=== PATIENT | male | born 1975 | race African-American/Black ===

== ENCOUNTER 2016-12-21 14:32 | Emergency (ER) | payer OTHER ==
[~2016-12-21] VITALS: Ht 172.7 cm; Wt 74.8 kg
[~2016-12-21 14:32] MED LIST: ATRIPLA TABLET1 EAC1 ORAL; HYDROCHLOROTH12.5 M2 ORAL
[2016-12-21] MEDS ORDERED: NKM (14:49)
[2016-12-21] MEDS ORDERED: Metoclopramide 10mg/10ml Liq ORAL ONE (15:15)
[2016-12-21] MEDS ORDERED: Acetaminophen 500mg (ES) tab ORAL ONE (15:15)
--- NOTE | 2016-12-21 15:30 | Emergency Room Report ---
History of Present Illness General Chief Complaint: Headache Source: Patient Present Illness HPI 41 YO male presents to the ED c/o Headache and left ear pain times one week in addition to palpable lump on the scalp that is tender. Patient denies nausea, vomiting, fevers or chills,or sudden onset of headache. Patient rates his pain as 10 out of 10 in severity described as dull and throbbing. And reports decreased hearing out of the left ear. Patient denies discharge from the ear. Patient denies recent trauma or fall. Patient states he has had a palpable lump on his scalp for quite some time however more recently it has become tender to the touch. Denies imbalance, CP, Palpitations, LOC, AMS, dizziness, Changes in Vision, Sensation, paresthesias, or a sudden severe headache. Allergies: Coded Allergies: No Known Allergies (Unverified , 10/07/14) Patient History Past Medical History: see triage record Past Surgical History: none Pertinent Family History: none Immunizations: UTD Reviewed Nursing Documentation: PMH: Agreed, PSxH: Agreed Nursing Documentation-PMH Past Medical History: No Stated History Hx Cardiac Problems: No - HIV Hx Hypertension: No - CHORNIC BACK PAIN Review of Systems All Other Systems: negative except mentioned in HPI Physical Exam Vital Signs Date Time Temp Pulse Resp B/P Pulse Ox O2 Delivery O2 Flow Rate FiO2 12/21/16 14:43 98.1 82 16 154/98 99 Room Air Sp02 EP Interpretation: reviewed, normal General Appearance: no apparent distress, alert, GCS 15, non-toxic Head: normocephalic, atraumatic, other - TTP to a small well cirsumscribed mobile mass located on the occipital region of the scalp, no erythema, no fluctuance, consistent with lipoma or soft tissue cyst. Eyes: bilateral eye EOMI, bilateral eye PERRL, bilateral eye normal inspection ENT: hearing grossly normal, normal pharynx, no angioedema, normal voice, uvula midline, moist mucus membranes, other - Left TM has Serous fluid noted behing the membrane, no erythema, no d/c noted, not perforated. right TM and Canal are WNL. Neck: full range of motion, no meningismus, no bony tend, supple/symm/no masses Respiratory: chest non-tender, lungs clear, normal breath sounds, speaking full sentences Cardiovascular #1: regular rate, rhythm, no edema Gastrointestinal: normal bowel sounds, non tender, soft, no guarding, no rebound Rectal: deferred Musculoskeletal: back normal, gait/station normal, normal range of motion, non- tender, no calf tenderness Neurologic: alert, oriented x3, responsive, motor strength/tone normal, sensory intact, cerebellar normal, normal gait, speech normal, no pronator, other - negative rosen's Psychiatric: judgement/insight normal, memory normal, mood/affect normal Skin: normal color, no rash, warm/dry, well hydrated, other - TTP to a small well cirsumscribed mobile mass located on the occipital region of the scalp, no erythema, no fluctuance, consistent with lipoma or soft tissue cyst. Lymphatic: no adenopathy Medical Decision Making PA Attestation Dr. Sosa is my supervising Physician whom patient management has been discussed with. Diagnostic Impression: Primary Impression: Acute serous otitis media of left ear without rupture Additional Impressions: Head ache Qualified Codes: R51 - Headache Lipoma of scalp ER Course 41 YO male presents to the ED c/o Headache and left ear pain times one week in addition to palpable lump on the scalp that is tender. Patient denies fevers or chills denies dizziness denies sudden onset of headache. Patient rates his pain as 10 out of 10 in severity. And reports decreased hearing out of the left ear. Patient denies discharge from the ear. Patient denies recent trauma or fall. Patient states he has had a palpable lump on his scalp for quite some time however more recently it has become tender to the touch. Ddx considered but are not limited to, LAD, Lipoma, Cyst, Mass, migraine, SAH, Psedudo motor Cerebri, Mass lesion, Cluster BRUCE, Tension BRUCE, OM, OE, Vital signs: are WNL, pt. is afebrile H&PE are most consistent with lipoma vs soft tissue cyst-no evidence of infection not consistent with LAD, pt. has right serous otitis media without rupture. no focal neurological deficits noted on PE. ORDERS: - none required at this time, dx is clinical. ED INTERVENTIONS: - Reglan PO - Tylenol PO d/w pt. proper follow up and recommend evaluation by ENT specialist and if headache continues after ear symptoms resolve that neurologist follow up is recommended as well. DISCHARGE: At this time pt. is stable for d/c to home. Will provide printed patient care instructions, and any necessary prescriptions. Care plan and follow up instructions have been discussed with the patient prior to discharge. Last Vital Signs Date Time Temp Pulse Resp B/P Pulse Ox O2 Delivery O2 Flow Rate FiO2 12/21/16 14:43 98.1 82 16 154/98 99 Room Air Disposition: HOME, SELF-CARE Condition: Stable Scripts Acetaminophen* (TYLENOL EXTRA STRENGTH*) 500 Mg Tablet 500 MG ORAL Q6H, #30 TAB 0 Refills Prov: Lina Hill 12/21/16 Cetirizine Hcl* (ZYRTEC*) 10 Mg Tablet 10 MG ORAL DAILY for 30 Days, #30 TAB 0 Refills Prov: Lina Hill 12/21/16 Pseudoephedrine Hcl* (NEXAFED*) 30 Mg Tablet 30 MG ORAL Q6H, #28 TAB Prov: Lina Hill 12/21/16 Referrals: [facility],REFERRING (PCP) Patient Instructions: Lipoma, Serous Otitis Media Additional Instructions: Take medications as directed. Follow up with PCP in 3-5 days, May require ENT Specialist evaluation. if Headaches persist Neurology Evaluation is also recommended. Return sooner to ED if new symptoms occur, or current symptoms become worse. - Please note that this Emergency Department Report was dictated using [employer] equipment engineer technology software, occasionally this can lead to erroneous entry secondary to interpretation by the dictation equipment. Lina Hill Dec 21, 2016 15:30
[2016-12-21] MEDS ORDERED: NEXAFED30 MG ORAL (15:31)
[2016-12-21] MEDS ORDERED: TYLENOL EXTRA500 MG ORAL (15:31)
[2016-12-21] MEDS ORDERED: ZYRTEC10 MG ORAL (15:31)
[2016-12-21 15:38] VITALS: BP 145/89
[2016-12-21 15:53] VITALS: BP 145/89
== END 2016-12-21 15:54 | disposition home or self-care (01) ==
LOC: EMR 15:08
DX: R51 Headache (principal); H65.02 Acute serous otitis media, left ear; D17.0 Benign lipomatous neoplasm of skin and subcutaneous tissue of head, face and neck; G89.29 Other chronic pain
CPT/HCPCS: 99284

== ENCOUNTER 2019-09-16 15:08 | Emergency (ER) | payer MEDICAID, OTHER ==
[~2019-09-16] VITALS: Ht 167.6 cm; Wt 72.6 kg
[~2019-09-16 15:08] MED LIST changes: +NEXAFED30 MG ORAL; +NKM; +TYLENOL EXTRA500 MG ORAL; +ZYRTEC10 MG ORAL
--- NOTE | 2019-09-16 15:28 | NUR ---
ED Nurse Note: pt identifies as female and prefers name as "Karley" primary rn and PA-C made aware.
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
[2019-09-16 15:42] VITALS: BP 151/94
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
[2019-09-16] MEDS ORDERED: LIDODERM700 M1 TOPIC (15:51)
[2019-09-16] MEDS ORDERED: IBUPROFEN600 MG ORAL (15:51)
[2019-09-16] MEDS ORDERED: ROBAXIN-500MG ORAL (15:51)
[2019-09-16] MEDS ORDERED: Methocarbamol 750mg tab ORAL ONE (16:00)
--- NOTE | 2019-09-16 16:10 | NUR ---
ER DISCHARGE NOTE: Patient is cleared to be discharged per ERMD, pt is aox4, on room air, with stable vital signs. pt was given dc and prescription instructions, pt was able to verbalize understanding, pt id band removed. pt is able to ambulate with steady gait. pt took all belongings. Vital signs stable as documented
[2019-09-16 16:23] VITALS: BP 124/86
== END 2019-09-16 16:00 | disposition home or self-care (01) ==
LOC: EMR 16:00
DX: S16.1XXA Strain of muscle, fascia and tendon at neck level, initial encounter (principal); M25.512 Pain in left shoulder; M25.511 Pain in right shoulder; B20 Human immunodeficiency virus [HIV] disease; V43.52XA Car driver injured in collision with other type car in traffic accident, initial encounter; Y92.410 Unspecified street and highway as the place of occurrence of the external cause
CPT/HCPCS: 99282

== ENCOUNTER 2019-12-01 15:21 | Emergency (ER) | payer MEDICAID, OTHER ==
[~2019-12-01] VITALS: Ht 172.7 cm; Wt 72.6 kg
[~2019-12-01 15:21] MED LIST changes: +IBUPROFEN600 MG ORAL; +LIDODERM700 M1 TOPIC; +ROBAXIN-500MG ORAL
[2019-12-01 15:36] VITALS: BP 135/91
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
[2019-12-01] MEDS ORDERED: IBU800 MG PO (15:55)
[2019-12-01] MEDS ORDERED: ROBAXIN-500MG ORAL (15:55)
[2019-12-01] MEDS ORDERED: LIDODERM700 M1 TOPIC (15:56)
[2019-12-01 15:59] VITALS: BP 127/89
[2019-12-01] MEDS ORDERED: Methocarbamol 750mg tab ORAL ONE (16:00)
== END 2019-12-01 15:58 | disposition home or self-care (01) ==
LOC: EMR 15:35
DX: S39.012A Strain of muscle, fascia and tendon of lower back, initial encounter (principal); V43.52XA Car driver injured in collision with other type car in traffic accident, initial encounter; Y92.9 Unspecified place or not applicable; B20 Human immunodeficiency virus [HIV] disease
CPT/HCPCS: 99282

== ENCOUNTER 2020-08-01 17:15 | Emergency (ER) | payer OTHER ==
[~2020-08-01] VITALS: Ht 172.7 cm; Wt 72.6 kg
[~2020-08-01 17:15] MED LIST changes: +IBU800 MG PO
[2020-08-01 17:37] VITALS: BP 130/86
--- NOTE | 2020-08-01 17:46 | Emergency Room Report ---
History of Present Illness General Chief Complaint: Eye Problems Source: Patient Present Illness HPI 45-year-old female with no signal past medical history here complaining x2 days. Patient reports that she is been applying mascara and apply new lashes. Denies any trauma to the eye. Complains of yellow discharge from the eye in the morning. Denies any photophobia or blurred vision. Denies wearing any contact lenses or glasses. Visual acuity within normal limits. Has not taken medication for symptom relief. Denies . Allergies: Coded Allergies: No Known Allergies (Unverified , 10/07/14) COVID-19 Screening Contact w/high risk pt: No Experienced COVID-19 symptoms?: No COVID-19 Testing performed REPORT MANAGER: No Patient History Past Medical History: see triage record Past Surgical History: none Pertinent Family History: none Last Menstrual Period: transgender Now: No Immunizations: UTD Reviewed Nursing Documentation: PMH: Agreed; PSxH: Agreed Nursing Documentation-PMH Hx Cardiac Problems: No - HIV Hx Hypertension: No - CHORNIC BACK PAIN Review of Systems All Other Systems: negative except mentioned in HPI Physical Exam Vital Signs Date Time Temp Pulse Resp B/P (MAP) Pulse Ox O2 Delivery O2 Flow Rate FiO2 08/01/20 17:19 98.1 80 19 130/86 (101) 98 Room Air Sp02 EP Interpretation: reviewed, normal General Appearance: no apparent distress, alert, GCS 15, non-toxic Head: normocephalic, atraumatic Eyes: right eye other - Right upper eyelid stye noted as well as injected conjunctiva ENT: hearing grossly normal, normal pharynx, no angioedema, normal voice Neck: full range of motion, supple/symm/no masses Respiratory: chest non-tender, lungs clear, normal breath sounds, speaking full sentences Cardiovascular #1: regular rate, rhythm, no edema Gastrointestinal: normal bowel sounds, non tender, soft, non-distended, no guarding, no rebound Musculoskeletal: back normal Neurologic: alert, motor strength/tone normal, oriented x3, sensory intact, responsive, speech normal Psychiatric: judgement/insight normal, memory normal, mood/affect normal, no suicidal/homicidal ideation Skin: no rash Lymphatic: no adenopathy Medical Decision Making PA Attestation All diagnoses and treatment plans were reviewed and discussed with my supervising physician Dr. Whitten Diagnostic Impression: Primary Impression: Bacterial conjunctivitis Additional Impression: Hordeolum ER Course 45-year-old female with no signal past medical history here complaining x2 days. Patient reports that she is been applying mascara and apply new lashes. Denies any trauma to the eye. Complains of yellow discharge from the eye in the morning. Denies any photophobia or blurred vision. Denies wearing any contact lenses or glasses. Visual acuity within normal limits. Has not taken medication for symptom relief. Denies . Ddx considered but are not limited to: bacterial conjunctivitis, allergic conjunctivitis, viral conjunctivitis, periorbital cellulitis, global trauma Vital signs: are WNL, pt. is afebrile H&PE are most consistent with: Bacterial conjunctivitis, hordeolum ORDERS: Ofloxacin ophthalmic, erythromycin ophthalmic ED INTERVENTIONS: None required at this time. DISCHARGE: At this time pt. is stable for d/c to home. Will provide printed patient care instructions, and any necessary prescriptions. Care plan and follow up instructions have been discussed with the patient prior to discharge. Take medication as directed, follow-up licensed marriage and family therapist, if worsening symptoms return to the emergency Last Vital Signs Date Time Temp Pulse Resp B/P (MAP) Pulse Ox O2 Delivery O2 Flow Rate FiO2 08/01/20 17:37 98.1 19 130/86 98 Room Air 08/01/20 17:19 80 Disposition: HOME, SELF-CARE Condition: Stable Scripts Erythromycin Base (ERYTHROMYCIN*) 3.5 Gm Oint...g. 1 APPLIC RIGHT EYE Q6HR for 7 Days, #3.5 GM 0 Refills Prov: Geraldine Bolton 08/01/20 Ofloxacin (Ofloxacin) 5 Ml Drops 2 DROP OP Q6HR for 7 Days, #5 ML Prov: Geraldine Bolton 08/01/20 Patient Instructions: Bacterial Conjunctivitis, [id number], Stye Additional Instructions: Take medication as directed, follow-up with primary care provider, if worsening symptoms return to emergency Geraldine Bolton Aug 01, 2020 17:46
[2020-08-01] MEDS ORDERED: OFLOXACIN10 ML OP (17:49)
[2020-08-01] MEDS ORDERED: ERYTHROMYCIN3.5 GM RIGHT EYE (17:49)
[2020-08-01 17:55] VITALS: BP 130/86
--- NOTE | 2020-08-01 17:55 | NUR ---
ED Nurse Note: Pt cleared by health care Provider for discharge. DC instructions/prescription was given and explained to pt and verbalized understanding of teachings. All medical deviecs such as ID band removed. Pt is AAO x4, ambulatory and left with all personal belongings.
== END 2020-08-01 17:55 | disposition home or self-care (01) ==
LOC: EMR 17:28
DX: H10.89 Other conjunctivitis (principal); B96.89 Other specified bacterial agents as the cause of diseases classified elsewhere; H00.011 Hordeolum externum right upper eyelid; G89.29 Other chronic pain; M54.9 Dorsalgia, unspecified
CPT/HCPCS: 99282